=== PATIENT | female | born 1935 | race Caucasian/White ===

== ENCOUNTER → 2016-07-20 | Outpatient (CLI) | payer MEDICARE, BC ==
[~2016-07-20] MED LIST: ALEN1TAB48 PO; BACT800T5 PO; BENZ1CAP8 PO; CHERSYP2 PO; CYAN1SUB SL; ESTE1TAB5 PO; FLUT50SP NASAL; LEVO.05 PO; LEVO50TA4 PO; LISI-519 PO; METHTAB PO; MULT1TAB PO; NAME5TAB2 PO; NIAC400C PO; PANT40TA3 PO; PRESCAP5 PO; PROT40TA PO
[2016-07-20 15:23] LABS: MEAN CORPUSCULAR HEMOGLOBIN 31.4 PG (27.0-34.0); MEAN CORPUSCULAR HGB CONC 33.4 % (32.0-36.0); PLATELET COUNT 254 TH/MM3 (150-450); RED BLOOD COUNT 5.21 MIL/MM3 (4.00-5.30); RED CELL DISTRIBUTION WIDTH 13.1 % (11.6-17.2); REVIEW FLAG FINAL; WHITE BLOOD COUNT 12.4 TH/MM3 (4.0-11.0)
[2016-07-20 15:56] LABS: ALKALINE PHOSPHATASE 75 U/L (45-117); HDL CHOLESTEROL 60.9 MG/DL (40.0-60.0); TOTAL BILIRUBIN ADULT 0.8 MG/DL (0.2-1.0)
[2016-07-20 16:01] LABS: ALT (GPT) 17 U/L (10-53); ANION GAP 7 MEQ/L (5-15); AST (GOT) 31 U/L (15-37); BLOOD UREA NITROGEN 16 MG/DL (7-18); CHLORIDE 102 MEQ/L (98-107); GLOMERULAR FILTRATION RATE 53 ML/MIN (>89); GLUCOSE,FASTING 115 MG/DL (74-99); LDL CHOLESTEROL 96 MG/DL (0-99); SODIUM (NA) 136 MEQ/L (136-145)
[2016-07-20 16:12] LABS: POTASSIUM 4.2 MEQ/L (3.5-5.1)
== END ==
LOC: PLAB 11:48
PROVIDERS: ATTEND Internal Medicine Interventional Cardiology
DX: I11.9 Hypertensive heart disease without heart failure (principal); I65.23 Occlusion and stenosis of bilateral carotid arteries; E78.00 Pure hypercholesterolemia, unspecified
CPT/HCPCS: 36415; 80053; 80061; 85027

== ENCOUNTER 2016-07-24 11:16 | Observation (INO) | payer MEDICARE, BC ==
[~2016-07-24] VITALS: Ht 162.6 cm; Wt 59.0 kg
[2016-07-24] VITALS (11 sets, daily range): BP systolic 131–217; BP diastolic 61–92; PULSE 50–78; RESP 16–19; TEMP 95.6–98.8; O2SAT 97–100
[~2016-07-24 11:16] MED LIST changes: -ALEN1TAB48 PO; -BENZ1CAP8 PO; -CHERSYP2 PO; -CYAN1SUB SL; -ESTE1TAB5 PO; -FLUT50SP NASAL; -LEVO50TA4 PO; -LISI-519 PO; -NAME5TAB2 PO; -NIAC400C PO; -PANT40TA3 PO; -PRESCAP5 PO
[2016-07-24] MEDS ORDERED: SODIUM CHLOR 0.9% 1000 ML INJ 1,000 ML IV SCH (11:29)
[2016-07-24 11:53] LABS: AUTOMATED NEUTROPHIL # 6.1 TH/MM3 (1.8-7.7); BASOPHIL # 0.1 TH/MM3 (0-0.2); BASOPHIL % 0.7 % (0.0-2.0); EOSINOPHIL # 0.1 TH/MM3 (0-0.4); EOSINOPHIL % 0.6 % (0.0-4.0); HEMATOCRIT 45.6 % (35.0-46.0); HEMO FLAGS DIFF FINAL; LYMPH % 23.7 % (9.0-44.0); LYMPHOCYTE # 2.2 TH/MM3 (1.0-4.8); MEAN CELL VOLUME 93.9 FL (80.0-100.0); MEAN CORPUSCULAR HGB CONC 34.1 % (32.0-36.0); MONO % 9.2 % (0.0-8.0); NEUT % 65.8 % (16.0-70.0); PLATELET COUNT 202 TH/MM3 (150-450); RED BLOOD COUNT 4.85 MIL/MM3 (4.00-5.30); RED CELL DISTRIBUTION WIDTH 13.5 % (11.6-17.2); WHITE BLOOD COUNT 9.3 TH/MM3 (4.0-11.0)
--- NOTE | 2016-07-24 11:56 | PD ---
HPI Chief Complaint: General Weakness Time Seen by Provider: 11:50 Travel History International Travel<30 days: No Contact w/Intl Traveler<30days: No Traveled to known affect area: No History of Present Illness HPI 80-year-old female that presents to the ED via ambulance for evaluation of generalized weakness. Apparently patient had an episode of presyncope with generalized weakness while going to [employer]. Per patient she has been treated for a upper respiratory infection symptoms since the . Patient was given prednisone and some antibiotics. Patient is not really sure what she is taking. Per patient she's been feeling weak for the past couple of days but today was worse and she almost feels like she is given a lost consciousness. Per patient she has irritable bowel syndrome and she is loose stools but denies any blood. She denies any vomiting but does state feeling very nauseous. She has any chest pain or shortness of breath. She's had some cough or runny nose. Cough is productive. She denies any chest pain. No palpitations. She denies any actual fall. Family was able to help her lay on the floor. Per patient she doesn't feel like the room is spinning but she feels like lose consciousness. Denies any pain. No lightheadedness at this time. No headache. On physical exam she is somewhat somnolent but she is easily arousable and answers questions properly. She does have a history of allergies to different medications including antidepressants. PFSH Past Medical History Anemia: Yes Cancer: No Cardiovascular Problems: Yes Endocrine: Yes Gastrointestinal Disorders: Yes Genitourinary: No Hiatal Hernia: Yes Immune Disorder: No Implanted Vascular Access Dvce: No Musculoskeletal: No Neurologic: No Psychiatric: No Reproductive: No Respiratory: No Immunizations Current: Yes Thyroid Disease: Yes Menopausal: Yes : 1 Tubal Ligation: Yes Past Surgical History Abdominal Surgery: Yes (BOWEL RESECTION) Cardiac Surgery: Yes (vein stripping right leg) Cholecystectomy: Yes Ear Surgery: No Endocrine Surgery: No Eye Surgery: No Genitourinary Surgery: No Gynecologic Surgery: Yes (hysterectomy) Hysterectomy: Yes Neurologic Surgery: No Oral Surgery: No Thoracic Surgery: No Tonsillectomy: Yes Other Surgery: Yes (GALL BLADDER SURGERY) Social History Alcohol Use: No Tobacco Use: No Substance Use: No Allergies-Medications (Allergen,Severity, Reaction): Coded Allergies: Demerol (Verified Allergy, Severe, VOMIT, 07/24/16) Floxcin (Verified Allergy, Severe, Dizziness, 07/24/16) Toprol Xl (Verified Allergy, Severe, 07/24/16) Bupropion (Verified Allergy, Unknown, 07/24/16) Effexor (Verified Allergy, Unknown, 07/24/16) Paxil (Verified Allergy, Unknown, 07/24/16) Zoloft (Verified Allergy, Unknown, 07/24/16) Uncoded Allergies: ANTIDEPESSANTS (Adverse Reaction, Severe, Dizziness, 12/08/11) Reported Meds & Prescriptions Reported Meds & Active Scripts Active Reported Niacin Flush Free (Niacin-Inositol) 400-100 Mg Cap 1 Cap PO DAILY Alendronate (Alendronate Sodium) 70 Mg Tab 70 Mg PO Q7D Preservision Areds 2 (Multiple Vitamins W/ Minerals) 1 Cap 1 Cap PO BID Namenda (Memantine) 5 Mg Tab 5 Mg PO DAILY Benzonatate 100 Mg Cap 100 Mg PO TID B-12 (Cyanocobalamin) 5,000 Mcg Subl 5,000 Mcg SL DAILY Cheratussin AC Liq (Guaifenesin-Codeine Liq) 100-10 Mg/5 Ml Syrp 5-10 Ml PO Q4H PRN Do not exceed 6 doses/24 hrs. Pantoprazole (Pantoprazole Sodium) 40 Mg Tab 40 Mg PO DAILY Centrum Silver Adult 50+ (Multiple Vitamins W/ Minerals) 1 Tab Tab 1 Tab PO DAILY Levothyroxine (Levothyroxine Sodium) 50 Mcg Tab 50 Mcg PO DAILY Esterified Estrogens-Methyltestosterone 1.25-2.5 Mg Tab 1 Tab PO DAILY Review of Systems Except as stated in HPI: all other systems reviewed are Neg Physical Exam Narrative GENERAL: SKIN: Warm and dry. HEAD: Atraumatic. Normocephalic. EYES: Pupils equal and round 4 mm reactive to light and accommodation. No scleral icterus. No injection or drainage. ENT: No nasal bleeding or discharge. Mucous membranes pink and moist. Tongue is midline. No uvula deviation. NECK: Trachea midline. No JVD. CARDIOVASCULAR: Regular rate and rhythm. No murmurs, S3, S4. RESPIRATORY: No accessory muscle use. Clear to auscultation. Breath sounds equal bilaterally. GASTROINTESTINAL: Abdomen soft, non-tender, nondistended. Hepatic and splenic margins not palpable. MUSCULOSKELETAL: Extremities without clubbing, cyanosis, or edema. No obvious deformities. Full range of motion of the upper and lower extremities bilaterally. 2+ pulses bilaterally. NEUROLOGICAL: Awake and alert. No obvious cranial nerve deficits. Motor grossly within normal limits. Five out of 5 muscle strength in the arms and legs. Normal speech. PSYCHIATRIC: Appropriate mood and affect; insight and judgment normal. Data Data Last Documented VS Vital Signs Date Time Temp Pulse Resp B/P Pulse Ox O2 Delivery O2 Flow Rate FiO2 07/24/16 12:58 56 18 187/79 99 Nasal Cannula 2 07/24/16 11:19 97.8 Orders Electrocardiogram (07/24/16 11:29) Complete Blood Count With Diff (07/24/16 11:29) Comprehensive Metabolic Panel (07/24/16 11:29) Ckmb (Isoenzyme) Profile (07/24/16 11:29) Troponin I (07/24/16 11:29) Prothrombin Time / Inr (Pt) (07/24/16 11:29) Act Partial Throm Time (Ptt) (07/24/16 11:29) Blood Culture (07/24/16 11:29) Lipase (07/24/16 11:29) Urinalysis - C+S If Indicated (07/24/16 11:29) Magnesium (Mg) (07/24/16 11:29) Thyroid Stimulating Hormone (07/24/16 11:29) Chest, Single Ap (07/24/16 11:29) Ct Brain W/O Iv Contrast(Rout) (07/24/16 11:29) Iv Access Insert/Monitor (07/24/16 11:29) Ecg Monitoring (07/24/16 11:29) Oximetry (07/24/16 11:29) Orthostatic Vital Signs (07/24/16 11:29) Blood Glucose (07/24/16 11:29) Sodium Chlor 0.9% 1000 Ml Inj (Ns 1000 M (07/24/16 11:29) Influenzae A/B Antigen (07/24/16 11:34) Lactic Acid (07/24/16 11:55) Clonidine (Catapres) (07/24/16 12:30) Cath For Specimen (07/24/16 12:31) Labs Laboratory Tests Test 07/24/16 07/24/16 11:39 13:02 White Blood Count 9.3 TH/MM3 Red Blood Count 4.85 MIL/MM3 Hemoglobin 15.5 GM/DL Hematocrit 45.6 % Mean Corpuscular Volume 93.9 FL Mean Corpuscular Hemoglobin 32.0 PG Mean Corpuscular Hemoglobin 34.1 % Concent Red Cell Distribution Width 13.5 % Platelet Count 202 TH/MM3 Mean Platelet Volume 9.5 FL Neutrophils (%) (Auto) 65.8 % Lymphocytes (%) (Auto) 23.7 % Monocytes (%) (Auto) 9.2 % Eosinophils (%) (Auto) 0.6 % Basophils (%) (Auto) 0.7 % Neutrophils # (Auto) 6.1 TH/MM3 Lymphocytes # (Auto) 2.2 TH/MM3 Monocytes # (Auto) 0.9 TH/MM3 Eosinophils # (Auto) 0.1 TH/MM3 Basophils # (Auto) 0.1 TH/MM3 CBC Comment DIFF FINAL Differential Comment Sodium Level 139 MEQ/L Potassium Level 3.7 MEQ/L Chloride Level 103 MEQ/L Carbon Dioxide Level 31.0 MEQ/L Anion Gap 5 MEQ/L Blood Urea Nitrogen 17 MG/DL Creatinine 0.87 MG/DL Estimat Glomerular Filtration 63 ML/MIN Rate Random Glucose 117 MG/DL Calcium Level 8.1 MG/DL Magnesium Level 2.0 MG/DL Total Bilirubin 0.8 MG/DL Aspartate Amino Transf 18 U/L (AST/SGOT) Alanine Aminotransferase 13 U/L (ALT/SGPT) Alkaline Phosphatase 56 U/L Total Creatine Kinase 63 U/L Troponin I LESS THAN 0.02 NG/ML Total Protein 5.7 GM/DL Albumin 3.0 GM/DL Lipase 73 U/L Thyroid Stimulating Hormone 4.210 uIU/ML 3rd Gen Lactic Acid Level 2.0 mmol/L [facility] Medical Decision Making Medical Screen Exam Complete: Yes Emergency Medical Condition: Yes Medical Record Reviewed: Yes Interpretation(s) EKG shows sinus bradycardia with first-degree block but no sign of acute ischemia. Read by me and attending. Troponin and CK-MB negative. TSH of 4. CBC & BMP Diagram 07/24/16 11:39 LFTs and lipase WNL CXR and CT of head WNL lactic WNL Differential Diagnosis Generalized weakness versus syncope versus presyncope versus sepsis versus pneumonia versus cardiac syncope versus influenza versus viral illness Narrative Course 80-year-old female that presents to the ED for evaluation of generalized weakness. Patient was properly examined and was found to have signs and symptoms of unclear etiology. Patient does appear to be somewhat somnolent on exam but she is easily arousable. Concern for significant illness. Recommendations for labs and imaging. Patient expressed to proceed. Labs and imaging showed no sign of acute disease. Orthostatics were within normal limits. Her actual blood pressure she went up when she stood up in the 200s and she fell dizziness . Orthostatic vital signs. I recommend admission this time is for admission. She patient has been here before with similar symptoms in the past. Last time that she had this wasn't 2015 about 2 years ago. I do recommend admission at this time as patient does appear to be very weak and I think she will benefit from further testing to better appreciate a diagnosis. She is also very hypertensive and I'm concerning for hypertensive urgency. Patient was given clonidine here in the ED. Case was discussed with my attending who agrees that patient needs to be admitted to the hospital. JENNIFER was paged and DR Yanez agrees to admission. Procedures EKG Prior to Arrival: No Diagnosis Primary Impression: Near syncope Additional Impressions: HTN (hypertension) Qualified Code: I10 - Essential hypertension Hypothyroid Qualified Code: E03.9 - Hypothyroidism, unspecified type Admitting Information Admitting Physician Requests: Alden Ruiz Jul 24, 2016 11:56
--- NOTE | 2016-07-24 11:57 | RADRPT ---
EXAM DATE/TIME: 07/24/2016 11:41 [facility] COMPARISON: CHEST SINGLE AP, December 11, 2014, 9:34. INDICATIONS : Syncopal episode. MEDICAL HISTORY : None. SURGICAL HISTORY : None. ENCOUNTER: Initial ACUITY: 1 day PAIN SCORE: 0/10 LOCATION: N/A FINDINGS: A single view of the chest demonstrates the lungs to be symmetrically aerated without evidence of mas s, infiltrate or effusion. The cardiomediastinal contours are unremarkable. Osseous structures are intact. CONCLUSION: Normal examination. Joe Durán MD on July 24, 2016 at 11:55 Board Certified Radiologist. This report was verified electronically.
--- NOTE | 2016-07-24 12:00 | RADRPT ---
EXAM DATE/TIME: 07/24/2016 11:47 [facility] COMPARISON: CT BRAIN W/O CONTRAST, December 11, 2014, 10:03. INDICATIONS : Dizziness. RADIATION DOSE: 34.04 CTDIvol (mGy) MEDICAL HISTORY : Hypertension. SURGICAL HISTORY : Hysterectomy. ENCOUNTER: Initial ACUITY: 1 day PAIN SCALE: 5/10 LOCATION: cranial TECHNIQUE: Multiple contiguous axial images were obtained of the head. Using automated exposure control and adj ustment of the mA and/or kV according to patient size, radiation dose was kept as low as reasonably a chievable to obtain optimal diagnostic quality images. FINDINGS: CEREBRUM: The ventricles are normal for age. No evidence of midline shift, mass lesion, hemorrhage or acute in farction. No extra-axial fluid collections are seen. POSTERIOR FOSSA: The cerebellum and brainstem are intact. The 4th ventricle is midline. The cerebellopontine angle i s unremarkable. EXTRACRANIAL: The visualized portion of the orbits is intact. SKULL: The calvaria is intact. No evidence of skull fracture. CONCLUSION: Normal examination. Joe Durán MD on July 24, 2016 at 11:59 Board Certified Radiologist. This report was verified electronically.
[2016-07-24 12:22] LABS: ALKALINE PHOSPHATASE 56 U/L (45-117); ALT (GPT) 13 U/L (10-53); ANION GAP 5 MEQ/L (5-15); BLOOD UREA NITROGEN 17 MG/DL (7-18); CHLORIDE 103 MEQ/L (98-107); GLOMERULAR FILTRATION RATE 63 ML/MIN (>89); SODIUM (NA) 139 MEQ/L (136-145); TOTAL BILIRUBIN ADULT 0.8 MG/DL (0.2-1.0)
[2016-07-24 12:23] LABS: AST (GOT) 18 U/L (15-37); CREATINE KINASE 63 U/L (26-192); POTASSIUM 3.7 MEQ/L (3.5-5.1)
[2016-07-24] MEDS ORDERED: cloNIDine HCL 0.1 MG TAB PO ONE (12:30)
[2016-07-24] MEDS ORDERED: ESTE1TAB5 PO (12:54)
[2016-07-24] MEDS ORDERED: MULT1TAB PO (12:54)
[2016-07-24] MEDS ORDERED: ALEN1TAB48 PO (12:54)
[2016-07-24] MEDS ORDERED: PANT40TA3 PO (12:54)
[2016-07-24] MEDS ORDERED: BENZ1CAP8 PO (12:54)
[2016-07-24] MEDS ORDERED: PRESCAP5 PO (12:54)
[2016-07-24] MEDS ORDERED: CHERSYP2 PO (12:54)
[2016-07-24] MEDS ORDERED: LEVO50TA4 PO (12:54)
[2016-07-24] MEDS ORDERED: NAME5TAB2 PO (12:54)
[2016-07-24] MEDS ORDERED: NIAC400C PO (12:54)
[2016-07-24] MEDS ORDERED: CYAN1SUB SL (12:54)
[2016-07-24 13:58] LABS: BACTERIA, URINE RARE /hpf; BLOOD, URINE NEG (NEG); COMMENT (UR) CULT NOT INDICATED; CULTURE IF INDICATED CULT NOT INDICATED; GLUCOSE,URINE 70 mg/dL (NEG); HYALINE CAST, URINE 8 /lpf (RARE); KETONE, URINE NEG (NEG); MUCUS URINE FEW /lpf (OCC); NITRITE,URINE NEG (NEG); SQUAMOUS EPITHELIAL CELL URINE 1 /hpf (0-5); URINE COLOR LIGHT-YELLOW (YELLW/STRAW)
[2016-07-24] MEDS ORDERED: ALENDRONATE SODIUM 70 MG TAB PO SCH (14:00)
[2016-07-24] MEDS ORDERED: ENALAPRILAT 1.25 MG/ML VIAL IV PRN (14:00)
[2016-07-24] MEDS ORDERED: SODIUM CHLORIDE 0.9% FLUSH 5 ML FLUSH IV PRN (14:00)
[2016-07-24 14:20] LABS: PROTHROMBIN TIME - PATIENT 11.6 SEC (9.8-11.6)
--- NOTE | 2016-07-24 16:32 | HHI.HP ---
[facility] Service [facility] Primary Care Physician Madonna Winter MD Admission Diagnosis pre syncope, hypothyroidism, hypertension Diagnoses: Chief Complaint: Syncope Travel History International Travel<30 Days: No Contact w/Intl Traveler <30 Da: No Traveled to Known Affected Are: No History of Present Illness This 80-year-old female patient with past medical history which includes hypertension, hypothyroidism irritable bowel syndrome, diverticulitis with bowel resection and questionable dementia. Patient reports today she was in [employer] with her daughter and began to feel lightheaded. While patient and daughter were walking to her car patient had a reported witnessed syncopal episode. Patient was lowered to the ground per patient's daughter she was unresponsive for approximately a minute. There was associated diaphoresis. There is no report of tongue biting or shaking loss of bowel or bladder control. Prior to this incident patient reports she had was diagnosed with early bronchitis treated with a V. tach and steroids for the past 5 days. Patient reports that the cough and bronchitis-like symptoms have resolved. Chest x-ray reviewed in no acute disease seen. Upon arrival to the emergency room patient was found to be hypertensive with a blood pressure of 195/89 and a maximum blood pressure of 217/92. Patient denies headache or visual changes. Blood pressure improved after dose of by mouth clonidine. Patient denies chest pain nausea vomiting diarrhea constipation fevers or chills. Review of Systems Other All other systems reviewed and negative with the exceptions listed in history of present illness Past Family Social History Past Medical History hypertension, hypothyroidism irritable bowel syndrome and diverticulitis with history of bowel resection and questionable dementia Past Surgical History Bowel resection secondary to diverticulitis Tubal ligation, vein stripping, cholecystectomy and hysterectomy Reported Medications Niacin Flush Free (Niacin-Inositol) 400-100 Mg Cap 1 Cap PO DAILY Alendronate (Alendronate Sodium) 70 Mg Tab 70 Mg PO Q7D Preservision Areds 2 (Multiple Vitamins W/ Minerals) 1 Cap 1 Cap PO BID Namenda (Memantine) 5 Mg Tab 5 Mg PO DAILY Benzonatate 100 Mg Cap 100 Mg PO TID B-12 (Cyanocobalamin) 5,000 Mcg Subl 5,000 Mcg SL DAILY Cheratussin AC Liq (Guaifenesin-Codeine Liq) 100-10 Mg/5 Ml Syrp 5-10 Ml PO Q4H PRN Do not exceed 6 doses/24 hrs. Pantoprazole (Pantoprazole Sodium) 40 Mg Tab 40 Mg PO DAILY Centrum Silver Adult 50+ (Multiple Vitamins W/ Minerals) 1 Tab Tab 1 Tab PO DAILY Levothyroxine (Levothyroxine Sodium) 50 Mcg Tab 50 Mcg PO DAILY Esterified Estrogens-Methyltestosterone 1.25-2.5 Mg Tab 1 Tab PO DAILY Allergies: Coded Allergies: Demerol (Verified Allergy, Severe, VOMIT, 07/24/16) Floxcin (Verified Allergy, Severe, Dizziness, 07/24/16) Toprol Xl (Verified Allergy, Severe, 07/24/16) Bupropion (Verified Allergy, Unknown, 07/24/16) Effexor (Verified Allergy, Unknown, 07/24/16) Paxil (Verified Allergy, Unknown, 07/24/16) Zoloft (Verified Allergy, Unknown, 07/24/16) Uncoded Allergies: ANTIDEPESSANTS (Adverse Reaction, Severe, Dizziness, 12/08/11) Active Ordered Medications Current Medications Medications (Trade) Dose Ordered Sig/Shan Route Start Time Stop Time Status Last Admin (Tessalon) 100 mg TID PO 07/24/16 18:00 (Estratest) 1 tab DAILY PO 07/25/16 09:00 (Synthroid) 50 mcg DAILY@07 PO 07/25/16 09:00 (Namenda) 5 mg DAILY PO 07/25/16 09:00 (Theragran Hematinic) 1 tab DAILY PO 07/25/16 09:00 (Protonix) 40 mg DAILY PO 07/25/16 09:00 (Theragran M Tab) 1 tab DAILY PO 07/25/16 09:00 (NS Flush) 2 ml UNSCH PRN IV 07/24/16 14:00 (NS Flush) 2 ml BID IV 07/24/16 21:00 (Vasotec Inj) 1.25 mg Q6H PRN IV 07/24/16 14:00 Family History No history of coronary artery disease Social History Denies EtOH use tobacco use or illicit drug use Physical Exam Vital Signs Vital Signs Date Time Temp Pulse Resp B/P Pulse Ox O2 Delivery O2 Flow Rate FiO2 07/24/16 15:24 50 18 131/61 98 Room Air 07/24/16 14:58 59 18 167/76 99 Room Air 07/24/16 14:02 56 16 183/81 99 Room Air 07/24/16 12:58 56 18 187/79 99 Nasal Cannula 2 07/24/16 12:15 57 18 199/89 60 18 198/89 62 18 217/92 07/24/16 11:35 100 Nasal Cannula 2 07/24/16 11:21 58 16 99 Room Air 07/24/16 11:19 97.8 55 16 195/89 100 Physical Exam GENERAL: This is a well-nourished, well-developed patient, in no apparent distress. SKIN: No rashes, ecchymoses or lesions. Cool and dry. HEAD: Atraumatic. Normocephalic. No temporal or scalp tenderness. EYES: Extraocular motions intact. No scleral icterus. No injection or drainage. ENT: Nose without bleeding, purulent drainage or septal hematoma. Throat without erythema, tonsillar hypertrophy or exudate. Uvula midline. Airway patent. NECK: Trachea midline. No JVD or lymphadenopathy. Supple, nontender, no meningeal signs. CARDIOVASCULAR: Regular rate and rhythm without murmurs, gallops, or rubs. RESPIRATORY: Clear to auscultation. Breath sounds equal bilaterally. No wheezes , rales, or rhonchi. GASTROINTESTINAL: Abdomen soft, non-tender, nondistended. No hepato-splenomegaly , or palpable masses. No guarding. MUSCULOSKELETAL: Extremities without clubbing, cyanosis, or edema. No joint tenderness, effusion, or edema noted. No calf tenderness. Negative Homans sign bilaterally. NEUROLOGICAL: Awake and alert. No focal deficits Motor and sensory grossly within normal limits. 4 out of 5 muscle strength in all muscle groups. Normal speech. Laboratory Laboratory Tests Test 07/24/16 07/24/16 07/24/16 07/24/16 11:39 13:02 13:35 14:00 White Blood Count 9.3 Red Blood Count 4.85 Hemoglobin 15.5 Hematocrit 45.6 Mean Corpuscular Volume 93.9 Mean Corpuscular Hemoglobin 32.0 Mean Corpuscular Hemoglobin 34.1 Concent Red Cell Distribution Width 13.5 Platelet Count 202 Mean Platelet Volume 9.5 Neutrophils (%) (Auto) 65.8 Lymphocytes (%) (Auto) 23.7 Monocytes (%) (Auto) 9.2 Eosinophils (%) (Auto) 0.6 Basophils (%) (Auto) 0.7 Neutrophils # (Auto) 6.1 Lymphocytes # (Auto) 2.2 Monocytes # (Auto) 0.9 Eosinophils # (Auto) 0.1 Basophils # (Auto) 0.1 CBC Comment DIFF FINAL Differential Comment Sodium Level 139 Potassium Level 3.7 Chloride Level 103 Carbon Dioxide Level 31.0 Anion Gap 5 Blood Urea Nitrogen 17 Creatinine 0.87 Estimat Glomerular Filtration 63 Rate Random Glucose 117 Calcium Level 8.1 Magnesium Level 2.0 Total Bilirubin 0.8 Aspartate Amino Transf 18 (AST/SGOT) Alanine Aminotransferase 13 (ALT/SGPT) Alkaline Phosphatase 56 Total Creatine Kinase 63 Troponin I LESS THAN 0.02 Total Protein 5.7 Albumin 3.0 Lipase 73 Thyroid Stimulating Hormone 4.210 3rd Gen Lactic Acid Level 2.0 Urine Color LIGHT-YELLOW Urine Turbidity CLEAR Urine pH 7.0 Urine Specific [place] 1.010 Urine Protein NEG Urine Glucose (UA) 70 Urine Ketones NEG Urine Occult Blood NEG Urine Nitrite NEG Urine Bilirubin NEG Urine Urobilinogen LESS THAN 2.0 Urine Leukocyte Esterase TRACE Urine WBC LESS THAN 1 Urine Squamous Epithelial 1 Cells Urine Bacteria RARE Urine Hyaline Casts 8 Urine Mucus FEW Microscopic Urinalysis Comment CULT NOT INDICATED Prothrombin Time 11.6 Prothromb Time International 1.0 Ratio Activated Partial 25.0 Thromboplast Time Date/Time Procedure Status Source Growth 07/24/16 12:00 Aerobic Blood Culture Received Blood Peripheral Pending 07/24/16 12:00 Anaerobic Blood Culture Received Blood Peripheral Pending 07/24/16 11:12 Influenza Types A,B Antigen (NITA) - Final Complete Nasal Washing NEGATIVE FOR FLU A AND B ANTIGEN.... Result Diagram: 07/24/16 1139 07/24/16 1139 Imaging Last Impressions Head CT 07/24/16 1129 Signed Impressions: Service Date/Time: Sunday, July 24, 2016 11:47 - CONCLUSION: Normal examination. Joe Durán MD Chest X-Ray 07/24/16 1129 Signed Impressions: Service Date/Time: Sunday, July 24, 2016 11:41 - CONCLUSION: Normal examination. Joe Durán MD Assessment and Plan Assessment and Plan This 80-year-old female patient with past medical history which includes hypertension, hypothyroidism irritable bowel syndrome, diverticulitis with bowel resection and questionable dementia. Patient reports today she was in [employer] with her daughter and began to feel lightheaded. The had a syncopal episode while walking to the car. Patient also noted to be hypertensive with a maximum blood pressure of 217/92 in the emergency department. Syncopal episode- TIA versus seizure versus vasovagal Orthotic vital signs checked and negative Holter monitor ordered and pending US bilateral carotid arteries ordered Continuous telemetry monitoring well and observation EEG ordered and pending MRI ordered Hypertensive urgency: Patient has history of very labile blood pressure including significant hypotension. She does not take antihypertensives currently. Improved with clonidine when necessary continue Vasotec when necessary monitor blood pressure closely Hypothyroidism continue patient's Synthroid TSH 4.210 Recommend patient follow-up with outpatient PCP regarding Synthroid dose Dementia Continue patient's Namenda DVT prophylaxis with SCDs Discussed plan of care with ear provider, RN, patient and daughter at bedside Written by Ligia Lakhani, acting as scribe for Dr. Yanez on 07/24/16 at 16:31. The documentation accurately reflects the work performed [id number] by me on 07/24/16 at 1631. Ligia Lakhani Jul 24, 2016 16:32 Shayna Yanez MD Jul 24, 2016 18:14
[2016-07-24] MEDS: BENZONATATE 100 MG CAP PO SCH (18:00)
--- NOTE | 2016-07-24 19:39 | RADRPT ---
EXAM DATE/TIME: 07/24/2016 18:32 [facility] COMPARISON: No previous studies available for comparison. INDICATIONS : Syncope. MEDICAL HISTORY : . Hernia, hiatal. Thyroid disease. Anemia. SURGICAL HISTORY : Tonsillectomy. Cholecystectomy. Hysterectomy. Tubal ligation. Bowel resection. Coccyx recontruction. Right leg vein stripping. ENCOUNTER: Initial ACUITY: 1 day PAIN SCORE: 0/10 LOCATION: Bilateral neck PEAK SYSTOLIC VELOCITIES (cm/sec): ICA/CCA RATIO: Right: 2.8 Left: 1.5 ICA: Right: 172 Left: 118 CCA: Right: 63 Left: 80 ECA: Right: 75 Left: 98 VERTEBRAL: Right: 32 antegrade Left: 55 antegrade Elevated flow velocities and ICA/CCA ratios have been found to correlate with increased degrees of vessel stenosis, calculated as percentage of diameter relative to a normal segment of distal ICA/CCA FINDINGS: RIGHT CAROTID: There is no evidence for a hemodynamically significant carotid stenosis. Minimal int imal hyperplasia is present with scattered calcific plaque. LEFT CAROTID: There is no evidence for a hemodynamically significant carotid stenosis. Minimal inti mal hyperplasia is present with scattered calcific plaque. VERTEBRAL ARTERIES: Flow is antegrade in both vertebral arteries. MISCELLANEOUS: There are no ancillary masses or adenopathy. CONCLUSION: Negative examination for a hemodynamically significant carotid stenosis. CT angiogram m ay be of benefit. Natan Gong MD FACR Board Certified Radiologist. This report was verified electronically.
--- NOTE | 2016-07-24 20:18 | RADRPT ---
EXAM DATE/TIME: 07/24/2016 19:55 [facility] COMPARISON: MRI BRAIN W/O CONTRAST, December 11, 2014, 12:41. INDICATIONS : Syncope. MEDICAL HISTORY : Hypertension. SURGICAL HISTORY : Tonsillectomy. Hysterectomy. ENCOUNTER: Initial ACUITY: 1 day PAIN SCORE: 0/10 LOCATION: cranial TECHNIQUE: Multiplanar, multisequence MRI of the brain was performed without contrast. FINDINGS: Scattered periventricular white matter changes are noted. There is no parenchymal hemorrhage, acute i nfarction or mass lesion. There are no extra-axial fluid collections appreciated. Moderate empty sella is noted with some ballooning of the sella. There is no parenchymal hemorrhage. The posterior fossa is unremarkable. CONCLUSION: 1. Mild periventricular white matter changes. 2. Empty sella. 3. Otherwise, negative. Natan Gong MD FACR on July 24, 2016 at 20:13 Board Certified Radiologist. This report was verified electronically.
[2016-07-24] MEDS: SODIUM CHLORIDE 0.9% FLUSH 5 ML FLUSH IV SCH (21:00)
[2016-07-25 04:39] VITALS: BP 126/76; PULSE 78; RESP 18; TEMP 98; O2SAT 97
[2016-07-25 08:18] VITALS: BP 150/70; PULSE 60; RESP 18; TEMP 96.7; O2SAT 97
[2016-07-25] MEDS: ESTROGEN/METHYLTESTOSTERONE 1.25 MG/2.5 MG TAB PO SCH (08:57)
[2016-07-25] MEDS: SODIUM CHLORIDE 0.9% FLUSH 5 ML FLUSH IV SCH ×2 (08:58→20:27)
[2016-07-25] MEDS: BENZONATATE 100 MG CAP PO SCH ×3 (09:00→18:00)
[2016-07-25] MEDS: PANTOPRAZOLE SOD 40 MG DELAYED RELEASE TAB PO SCH (09:00)
[2016-07-25] MEDS ORDERED: LEVOTHYROXINE SODIUM 50 MCG TAB PO SCH (09:00)
[2016-07-25] MEDS: MEMANTINE HCL 5 MG TAB PO SCH (09:00)
[2016-07-25] MEDS ORDERED: [UNRECOGNIZED DRUG - REMARK] PO SCH (09:00)
[2016-07-25] MEDS: MULTIVITAMINS/MINERALS THERAPEUTIC TAB PO SCH (09:00)
[2016-07-25] MEDS: MULTIVITAMIN HEMATINIC THERAPEUTIC TAB PO SCH (09:00)
[2016-07-25 11:50] VITALS: BP 153/67; PULSE 52; RESP 18; TEMP 97.9; O2SAT 95
[2016-07-25 14:40] VITALS: PULSE 49
--- NOTE | 2016-07-25 15:05 | HHI.PR ---
Subjective Remarks Patient seen this AM around 8. She is seen in follow-up for syncope. She reports that she is feeling much better. She is eating breakfast. She did get lightheaded today when she got up to walk. Objective Vitals Vital Signs Date Time Temp Pulse Resp B/P Pulse Ox O2 Delivery O2 Flow Rate FiO2 07/25/16 14:40 49 07/25/16 11:50 97.9 52 18 153/67 95 07/25/16 08:18 96.7 60 18 150/70 97 07/25/16 04:39 98.0 78 18 126/76 97 07/24/16 23:34 98.8 78 19 135/67 97 07/24/16 20:22 98.7 52 16 133/62 98 07/24/16 20:14 55 07/24/16 17:05 95.6 59 18 162/71 100 07/24/16 15:24 50 18 131/61 98 Room Air I/O 07/24/16 07/24/16 07/24/16 07/25/16 07/25/16 07/25/16 07:00 15:00 23:00 07:00 15:00 23:00 Intake Total 480 ml 720 ml Balance 480 ml 720 ml Intake Oral 480 ml 720 ml # Voids 1 4 # Bowel Movements 1 Result Diagram: 07/24/16 1139 07/24/16 1139 Imaging Last Impressions Head CT 07/24/16 1129 Signed Impressions: Service Date/Time: Sunday, July 24, 2016 11:47 - CONCLUSION: Normal examination. Joe Durán MD Chest X-Ray 07/24/16 1129 Signed Impressions: Service Date/Time: Sunday, July 24, 2016 11:41 - CONCLUSION: Normal examination. Joe Durán MD Carotid Artery Ultrasound 07/24/16 0000 Signed Impressions: Service Date/Time: Sunday, July 24, 2016 18:32 - CONCLUSION: Negative examination for a hemodynamically significant carotid stenosis. CT angiogram may be of benefit. Natan Gong MD Brain MRI 07/24/16 0000 Signed Impressions: Service Date/Time: Sunday, July 24, 2016 19:55 - CONCLUSION: 1. Mild periventricular white matter changes. 2. Empty sella. 3. Otherwise, negative. Natan Gong MD FACR Objective Remarks GENERAL: This is a well-nourished, well-developed patient, in no apparent distress. CARDIOVASCULAR: Normal rate and regular rhythm without murmurs, gallops, or rubs. RESPIRATORY: Good respiratory efforts. Breath sounds equal and clear to auscultation bilaterally. GASTROINTESTINAL: Abdomen soft, non-tender, non-distended. Normal active bowel sounds MUSCULOSKELETAL: Extremities without cyanosis, or edema. NEURO: Alert & Oriented x4 to person, place, time, situation. Moves all ext x4 PSYCH: Appropriate mood and affect. A/P Assessment and Plan 80-year-old female patient with past medical history which includes hypertension , hypothyroidism irritable bowel syndrome, diverticulitis with bowel resection and questionable dementia. Patient admitted after syncopal episode. On presentation with hypertensive emergency. Syncopal episode-likely vasovagal. The patient reports she was under a lot of stress while in [employer] as well. Hypertensive emergency may be contributing as well. - Carotid ultrasound noted as above. Obtain CTA of the carotids. - Continuous telemetry monitoring well and observation - EEG ordered and pending - MRI unremarkable Hypertensive urgency: Patient has history of very labile blood pressure including significant hypotension. She does not take antihypertensives currently. Improved with 1 dose of clonidine. monitor blood pressure closely. continue Vasotec when necessary. He does not appear that she will need antihypertensives on discharge. Hypothyroidism continue patient's Synthroid TSH 4.210 Increase Synthroid to 75 g daily. Patient is advised to follow-up with PCP to adjust dosing. Dementia Continue patient's Namenda. Does sound like at times she has associated depressive symptoms. Would advise outpatient follow-up. DVT prophylaxis with SCDs Shayna Yanez MD Jul 25, 2016 15:05
[2016-07-25] MEDS ORDERED: IOHEXOL 350 MG/ML 10 ML VIAL (for RAD DIAG) IV ONE (15:52)
--- NOTE | 2016-07-25 16:27 | RADRPT ---
EXAM DATE/TIME: 07/25/2016 15:36 [facility] COMPARISON: No previous studies available for comparison. INDICATIONS : Seizure vs vasovagal. IV CONTRAST: 71 cc Omnipaque 350 (iohexol) IV RADIATION DOSE: 16.32 CTDIvol (mGy) MEDICAL HISTORY : Cardiovascular disease. Hypertension. SURGICAL HISTORY : None. ENCOUNTER: Subsequent ACUITY: 2 days PAIN SCALE: 0/10 LOCATION: cranial TECHNIQUE: Volumetric scanning was performed using a multirow detector CT scanner. The data was post processed with a variety of visualization algorithms including full-volume maximum intensity projection, multip lanar sliding thin-slab reformation, curved-planar reformation, and surface-rendering techniques. Us ing automated exposure control and adjustment of the mA and/or kV according to patient size, radiatio n dose was kept as low as reasonably achievable to obtain optimal diagnostic quality images. FINDINGS: AORTIC ARCH: There is a three-vessel origin of the great vessels from the aorta. No evidence of ostial narrowing. RIGHT CAROTID: There is no evidence for hemodynamically significant carotid stenosis. There is minimal irregularity suggesting fibromuscular dysplasia. LEFT CAROTID: There is no evidence for hemodynamically significant stenosis. The patient may have fibromuscular dy splasia. VERTEBRALS: The vertebral arteries have a symmetric diameter. No stenotic lesions are seen. CONCLUSION: Negative for hemodynamically significant carotid stenosis. Natan Gong MD FACR on July 25, 2016 at 16:23 Board Certified Radiologist. This report was verified electronically.
--- NOTE | 2016-07-25 16:32 | EC ---
Study Study Date:07/25/2016 STUDY CONCLUSIONS SUMMARY LEFT VENTRICLE: The cavity size was normal. Wall thickness was normal. Systolic function was normal. The estimated ejection fraction was in the range of 55% to 60%. Wall motion was normal; there were no regional wall motion abnormalities. If LV function is below 40, please consider prescribing an ACEI or ARB or document rationale for non-use. PROCEDURE DATA STUDY STATUS: Elective. Procedure: Transthoracic echocardiography. Image quality was good. Scanning was performed from the parasternal, apical, and subcostal acoustic windows. Study completion: The patient tolerated the procedure well. Transthoracic echocardiography. M-mode, complete 2D, complete spectral Doppler, and color Doppler. Patient status: Inpatient. CARDIAC ANATOMY LEFT VENTRICLE: The cavity size was normal. Wall thickness was normal. Systolic function was normal. The estimated ejection fraction was in the range of 55% to 60%. Wall motion was normal; there were no regional wall motion abnormalities. AORTIC VALVE: Trileaflet; normal thickness leaflets. Doppler: Transvalvular velocity was within the normal range. There was no stenosis. No regurgitation. AORTA: Aortic root: The aortic root was normal in size. MITRAL VALVE: Structurally normal valve. Doppler: Transvalvular velocity was within the normal range. There was no evidence for stenosis. Trace regurgitation. LEFT ATRIUM: The atrium was normal in size. RIGHT VENTRICLE: The cavity size was normal. Wall thickness was normal. PULMONIC VALVE: Doppler: Transvalvular velocity was within the normal range. There was no evidence for stenosis. No regurgitation. TRICUSPID VALVE: Structurally normal valve. Doppler: Transvalvular velocity was within the normal range. Trace regurgitation. PULMONARY ARTERY: The main pulmonary artery was normal-sized. Systolic pressure was within the normal range. RIGHT ATRIUM: The atrium was normal in size. PERICARDIUM: There was no pericardial effusion. SYSTEMIC VEINS: Inferior vena cava: The vessel was normal in size. Prepared and signed by Joe Cheng [id number]
--- NOTE | 2016-07-25 19:44 | EKG ---
Date Performed: 07/24/2016 Time Performed: 11:27:09 PTAGE: 80 years EKG: SINUS BRADYCARDIA WITH FIRST DEGREE AV BLOCK POSSIBLE RIGHT VENTRICULAR CONDUCTION DELAY LE FT ANTERIOR FASCICULAR BLOCK INFERIOR MYOCARDIAL INFARCTION ABNORMAL ECG PREVIOUS TRACING : 11/08/2015 08.25 DOCTOR: Ray Hazel Interpretating Date/Time 07/25/2016 19:37:29
[2016-07-25 20:43] VITALS: BP 159/70; PULSE 54; RESP 18; TEMP 97.8; O2SAT 98
[2016-07-25 23:27] VITALS: BP 147/74; PULSE 78; RESP 18; TEMP 98.7; O2SAT 98
[2016-07-26 04:29] VITALS: BP 151/78; PULSE 67; RESP 18; TEMP 98.8; O2SAT 98
[2016-07-26] MEDS ORDERED: LEVOTHYROXINE SODIUM 50 MCG TAB PO SCH (06:00)
[2016-07-26 08:28] VITALS: BP 173/70; PULSE 55; RESP 18; TEMP 97; O2SAT 96
--- NOTE | 2016-07-26 08:52 | HHI.PR ---
Subjective Remarks Follow-up for syncope. No episodes overnight. She states she walked well with PT yesterday, doesn't feel like she needs to continue with PT. She denies any dizziness. She is tolerating diet. No chest pain or shortness of breath. She does have some sinus drainage. She states her blood pressure normally runs low , apprehensive about starting on BP meds would rather follow-up with her PCP, Dr Winter. She feels like she passed out due to stress and trying to get to [employer] too fast. Objective Vitals Vital Signs Date Time Temp Pulse Resp B/P Pulse Ox O2 Delivery O2 Flow Rate FiO2 07/26/16 08:28 97.0 55 18 173/70 96 07/26/16 04:29 98.8 67 18 151/78 98 07/25/16 23:27 98.7 78 18 147/74 98 07/25/16 20:43 97.8 54 18 159/70 98 07/25/16 14:40 49 07/25/16 11:50 97.9 52 18 153/67 95 I/O 07/25/16 07/25/16 07/25/16 07/26/16 07/26/16 07/26/16 07:00 15:00 23:00 07:00 15:00 23:00 Intake Total 720 ml 480 ml Balance 720 ml 480 ml Intake Oral 720 ml 480 ml # Voids 4 2 # Bowel Movements 1 Result Diagram: 07/24/16 1139 07/24/16 1139 Imaging Last Impressions Neck CTA 07/25/16 0000 Signed Impressions: Service Date/Time: Monday, July 25, 2016 15:36 - CONCLUSION: Negative for hemodynamically significant carotid stenosis. Natan Gong MD FACR Head CT 07/24/16 1129 Signed Impressions: Service Date/Time: Sunday, July 24, 2016 11:47 - CONCLUSION: Normal examination. Joe Durán MD Chest X-Ray 07/24/16 1129 Signed Impressions: Service Date/Time: Sunday, July 24, 2016 11:41 - CONCLUSION: Normal examination. Joe Durán MD Carotid Artery Ultrasound 07/24/16 0000 Signed Impressions: Service Date/Time: Sunday, July 24, 2016 18:32 - CONCLUSION: Negative examination for a hemodynamically significant carotid stenosis. CT angiogram may be of benefit. Natan Gong MD Brain MRI 07/24/16 0000 Signed Impressions: Service Date/Time: Sunday, July 24, 2016 19:55 - CONCLUSION: 1. Mild periventricular white matter changes. 2. Empty sella. 3. Otherwise, negative. Natan Gong MD FACR Objective Remarks GENERAL: Well-developed well-nourished. In no acute distress. SKIN: Warm and dry. No lesions noted. HEENT: Normocephalic. Pupils equal and round. Mucous membranes pink and moist. CARDIOVASCULAR: Regular rate and rhythm. No murmur appreciated. RESPIRATORY: No accessory muscle use. Clear to auscultation. Breath sounds equal bilaterally. GASTROINTESTINAL: Abdomen soft, non-tender, nondistended. Bowel sounds x4. MUSCULOSKELETAL: No obvious deformities. No clubbing or cyanosis. No edema. NEUROLOGICAL: Awake and alert. No focal neurological deficits. Moves upper and lower extremities spontaneously. Normal speech. Strength 5/5. PSYCHIATRIC: Pleasant mood and affect; insight and judgment normal. A/P Problem List: (1) Near syncope ICD Code: R55 Status: Acute (2) HTN (hypertension) ICD Code: I10 Status: Chronic Assessment and Plan 80-year-old female patient with past medical history which includes hypertension , hypothyroidism irritable bowel syndrome, diverticulitis with bowel resection and questionable dementia. Patient admitted after syncopal episode. On presentation with hypertensive emergency. Syncopal episode-likely vasovagal. The patient reports she was under a lot of stress while in [employer]. Accelerated hypertension may be contributing as well. Imaging reviewed: Neck CT and carotid ultrasound with no significant stenosis. Head CT and brain MRI with no acute process. Echocardiogram with normal systolic function. - Holter monitor in place, continue telemetry monitoring - EEG performed, results pending - PT consulted, no further PT needed Hypertensive urgency: Patient has history of very labile blood pressure including significant hypotension. She does not take antihypertensives currently. BP remains uncontrolled. Start low-dose lisinopril. monitor blood pressure closely. Continue Vasotec when necessary. Outpatient PCP follow-up. Hypothyroidism continue patient's Synthroid TSH 4.210 Increased Synthroid to 75 g daily. Follow-up with PCP to adjust dosing. Dementia Continue patient's Namenda. Outpatient follow-up. DVT prophylaxis with SCDs Discharge Planning Discharge planning if EEG is unremarkable and BP is acceptable. Discussed with Dr. Dennis. EEG returned as unremarkable. BP improved after starting lisinopril. Discharge home in stable condition for outpatient follow-up with PCP. Attending Statement The exam, history, and the medical decision-making described in the above note were completed with the assistance of the mid-level provider. I reviewed and agree with the findings presented. I attest that I had a [id number] encounter with the patient on the same day, and personally performed and documented my assessment and findings in the medical record. Problem Qualifiers (1) HTN (hypertension): Qualified Code: I10 - Essential hypertension Diego Wright Jul 26, 2016 08:52 Naren Dennis MD Aug 04, 2016 07:26
[2016-07-26] MEDS ORDERED: FLUTICASONE PROPIONATE 50 MCG/ACT 16 GM NASAL SPRAY NASAL SCH (09:00)
[2016-07-26] MEDS: ESTROGEN/METHYLTESTOSTERONE 1.25 MG/2.5 MG TAB PO SCH (09:00)
[2016-07-26] MEDS: BENZONATATE 100 MG CAP PO SCH ×2 (09:17→13:00)
[2016-07-26] MEDS: MULTIVITAMIN HEMATINIC THERAPEUTIC TAB PO SCH (09:17)
[2016-07-26] MEDS: MULTIVITAMINS/MINERALS THERAPEUTIC TAB PO SCH (09:17)
[2016-07-26] MEDS: SODIUM CHLORIDE 0.9% FLUSH 5 ML FLUSH IV SCH (09:17)
[2016-07-26] MEDS: PANTOPRAZOLE SOD 40 MG DELAYED RELEASE TAB PO SCH (09:17)
[2016-07-26] MEDS: MEMANTINE HCL 5 MG TAB PO SCH (09:17)
--- NOTE | 2016-07-26 09:39 | MG ---
cc: SHANNON PAGAN MD Lab No:[id number] Date: 07/25/2016 Age: 80 Sex: F Race: DATE OF STUDY: 07/25/2016 ELECTROENCEPHALOGRAM RECORD NUMBER: DATE OF : 1935 HISTORY: 80-year-old female with a history of thyroid disease generalized weakness, presyncopal type symptoms, 79 Hz alpha activity 20-50 microvolts, good anterior-posterior gradient. Reasonably good driving with photic stimulation. Good EEG variability reactivity. Attenuation generalized slowing with transition into drowsy state, followed by bursts of 2-3 Hz generalized delta activity with resumption of wakeful state. Single lead EKG showing sinus rhythm. INTERPRETATION Normal awake sleep EEG. Clinical correlation. Shannon Pagan MD MG/wai /8:57 PM /9:13 AM
[2016-07-26 10:06] VITALS: BP 180/76
[2016-07-26 10:15] VITALS: PULSE 50
[2016-07-26] MEDS ORDERED: LISINOPRIL 5 MG TAB PO SCH (10:15)
[2016-07-26 12:30] VITALS: BP 128/60; PULSE 55; RESP 18; TEMP 97.6; O2SAT 95
[2016-07-26] MEDS ORDERED: LEVO.05 PO (13:06)
[2016-07-26] MEDS ORDERED: FLUT50SP NASAL (13:06)
[2016-07-26] MEDS ORDERED: LISI-519 PO (13:06)
--- NOTE | 2016-07-27 20:56 | HM ---
Date Performed: 07/25/2016 Time Performed: 19:10:00 HOOKUP DATE: 07/25/16 07:10:00 PM Mon ANALYSIS START TIME: 07/25/2016 7:15:00 PM ANALYSIS END TIME: 07/26/2016 2:14:21 PM PATIENT AGE: 80 PATIENT HEIGHT PATIENT WEIGHT DRUG LIST PATIENT DIAGNOSIS TEST NARRATIVE: The patient's average heart rate was 60 BPM. No episodes of tachycardia wer e noted. Heart rates less than 50 BPM were noted 4% of the time. No pauses exceeding 2.0 seconds were noted. 24 ventricular ectopics, which represented < 1% of the total beat count, were noted. The highest ventricular ectopic frequency occurred from 10:00 AM to 11:00 AM Tue. During this time 4 VE(s) occurred. Ventricular ectopics were observed as 24 isolated beat(s) only. No couplets or r uns were noted. 33 supraventricular ectopics, which represented < 1% of the total beat count, wer e noted. The highest supraventricular ectopic frequency occurred from 07:00 PM to 08:00 PM Mon. Dur ing this time 8 SVE(s) occurred. No episodes of ST depression (defined as -1.0 mm or more) were n oted in channel 1. No episodes of ST depression (defined as -1.0 mm or more) were noted in channel 2 . No episodes of ST depression (defined as -1.0 mm or more) were noted in channel 3. NO DIARY MAINTA INED TEST INTERPRETATION: Sinus rhythm Occasional PVCs Brief runs of nonsustained atrial tachycardia Signed by : Shadi Hernandez
== END 2016-07-26 15:15 | disposition home or self-care (01) ==
LOC: NEPE 11:16 → NEDH 13:48 → NEPGCP 16:56
PROVIDERS: ADMIT Internal Medicine; ATTEND Internal Medicine
DX: R55 Syncope and collapse (principal); I10 Essential (primary) hypertension; E03.9 Hypothyroidism, unspecified; R53.1 Weakness; R42 Dizziness and giddiness; R40.0 Somnolence; D64.9 Anemia, unspecified; K58.0 Irritable bowel syndrome with diarrhea; R11.0 Nausea; F03.90 Unspecified dementia, unspecified severity, without behavioral disturbance, psychotic disturbance, mood disturbance, and anxiety
CPT/HCPCS: 70450; 70498; 70551; 71010; 80053; 81001; 82550; 83605; 83690; 83735; 84443; 84484; 85025; 85610; 85730; 87040; 87804; 93005; 93225; 93226; 93306; 93880; 95819; 97162; 99285; G0378; G8987; G8988; J7030; Q9967

== ENCOUNTER → 2016-08-30 | Outpatient (CLI) | payer MEDICARE ==
[~2016-08-30] MED LIST changes: +ALEN1TAB48 PO; -BACT800T5 PO; +BENZ1CAP8 PO; +CHERSYP2 PO; +CYAN1SUB SL; +ESTE1TAB5 PO; +FLUT50SP NASAL; +LISI-519 PO; -METHTAB PO; +NAME5TAB2 PO; +NIAC400C PO; +PANT40TA3 PO; +PRESCAP5 PO; -PROT40TA PO
[2016-08-30 09:20] LABS: HEMATOCRIT 45.8 % (35.0-46.0); MEAN CELL VOLUME 94.1 FL (80.0-100.0); MEAN CORPUSCULAR HEMOGLOBIN 32.3 PG (27.0-34.0); MEAN CORPUSCULAR HGB CONC 34.3 % (32.0-36.0); PLATELET COUNT 194 TH/MM3 (150-450); RED BLOOD COUNT 4.86 MIL/MM3 (4.00-5.30); RED CELL DISTRIBUTION WIDTH 13.6 % (11.6-17.2); REVIEW FLAG FINAL
[2016-08-30 10:22] LABS: ALKALINE PHOSPHATASE 70 U/L (45-117); ALT (GPT) 15 U/L (10-53); ANION GAP 6 MEQ/L (5-15); AST (GOT) 24 U/L (15-37); BICARBONATE 29.6 MEQ/L (21.0-32.0); BLOOD UREA NITROGEN 13 MG/DL (7-18); CHLORIDE 100 MEQ/L (98-107); GLOMERULAR FILTRATION RATE 60 ML/MIN (>89); GLUCOSE,FASTING 98 MG/DL (74-99); LDL CHOLESTEROL 89 MG/DL (0-99); POTASSIUM 4.4 MEQ/L (3.5-5.1); SODIUM (NA) 136 MEQ/L (136-145)
== END ==
LOC: PLAB 07:37
PROVIDERS: ATTEND Family Medicine
DX: I10 Essential (primary) hypertension (principal); K28.0 Acute gastrojejunal ulcer with hemorrhage; E78.5 Hyperlipidemia, unspecified; E03.9 Hypothyroidism, unspecified; K21.9 Gastro-esophageal reflux disease without esophagitis; K58.9 Irritable bowel syndrome, unspecified; F03.90 Unspecified dementia, unspecified severity, without behavioral disturbance, psychotic disturbance, mood disturbance, and anxiety
CPT/HCPCS: 36415; 80053; 80061; 84443; 85027

== ENCOUNTER → 2016-12-28 | Outpatient (CLI) | payer MEDICARE, BC ==
[2016-12-28 16:17] LABS: HEMATOCRIT 42.6 % (35.0-46.0); MEAN CORPUSCULAR HEMOGLOBIN 32.1 PG (27.0-34.0); MEAN CORPUSCULAR HGB CONC 33.7 % (32.0-36.0); PLATELET COUNT 183 TH/MM3 (150-450); RED BLOOD COUNT 4.49 MIL/MM3 (4.00-5.30); RED CELL DISTRIBUTION WIDTH 13.7 % (11.6-17.2); REVIEW FLAG FINAL; WHITE BLOOD COUNT 6.9 TH/MM3 (4.0-11.0)
== END ==
LOC: PLAB 11:43
PROVIDERS: ATTEND Internal Medicine Interventional Cardiology
DX: R00.2 Palpitations (principal); I11.9 Hypertensive heart disease without heart failure; I65.23 Occlusion and stenosis of bilateral carotid arteries
CPT/HCPCS: 36415; 84443; 85027

== ENCOUNTER → 2017-05-24 | Outpatient (CLI) | payer MEDICARE, BC ==
[~2017-05-24] MED LIST changes: +BENZ1CAP54 PO; -BENZ1CAP8 PO
[2017-05-24 13:33] LABS: HEMATOCRIT 46.6 % (35.0-46.0); MEAN CORPUSCULAR HEMOGLOBIN 33.4 PG (27.0-34.0); MEAN CORPUSCULAR HGB CONC 34.4 % (32.0-36.0); PLATELET COUNT 186 TH/MM3 (150-450); RED CELL DISTRIBUTION WIDTH 13.6 % (11.6-17.2); REVIEW FLAG FINAL; WHITE BLOOD COUNT 6.9 TH/MM3 (4.0-11.0)
[2017-05-24 13:51] LABS: ANION GAP 8 MEQ/L (5-15); AST (GOT) 21 U/L (15-37); BICARBONATE 27.1 MEQ/L (21.0-32.0); BLOOD UREA NITROGEN 14 MG/DL (7-18); CHLORIDE 104 MEQ/L (98-107); GLOMERULAR FILTRATION RATE 63 ML/MIN (>89); GLUCOSE,FASTING 109 MG/DL (74-99); POTASSIUM 3.9 MEQ/L (3.5-5.1); SODIUM (NA) 139 MEQ/L (136-145)
[2017-05-24 14:04] LABS: ALKALINE PHOSPHATASE 64 U/L (45-117); ALT (GPT) 15 U/L (10-53); HDL CHOLESTEROL 60.6 MG/DL (40.0-60.0); LDL CHOLESTEROL 75 MG/DL (0-99); TOTAL BILIRUBIN ADULT 0.6 MG/DL (0.2-1.0)
== END ==
LOC: PLAB 08:18
PROVIDERS: ATTEND Family Medicine
DX: I10 Essential (primary) hypertension (principal); K28.0 Acute gastrojejunal ulcer with hemorrhage; E78.5 Hyperlipidemia, unspecified; E03.9 Hypothyroidism, unspecified; K21.9 Gastro-esophageal reflux disease without esophagitis; K58.9 Irritable bowel syndrome, unspecified; F03.90 Unspecified dementia, unspecified severity, without behavioral disturbance, psychotic disturbance, mood disturbance, and anxiety; R45.89 Other symptoms and signs involving emotional state; R05 Cough
CPT/HCPCS: 36415; 80053; 80061; 84443; 85027